=== PATIENT | male | born 1935 | race Caucasian/White ===

== ENCOUNTER 2017-05-06 11:42 | Observation (INO) | payer OTHER ==
--- NOTE | 2017-05-06 11:51 | CPEKG ---
Heart Rate: 45 RR Interval: 1333 QRSD Interval: 94 QT Interval: 492 QTC Interval: 426 QRS Reydon: 10 T Wave Reydon: 39 EKG Severity - ABNORMAL ECG - EKG Impression: ATRIAL FLUTTER, A-RATE 272 EKG Impression: VENTRICULAR PREMATURE COMPLEX Electronically Signed By: Óscar Rich 06-May-2017 12:57:23
[2017-05-06 12:02] LABS: PLATELET COUNT 127 10^3/uL (150-400)
--- NOTE | 2017-05-06 12:05 | EDPHY ---
H & P Time Seen by Provider: 05/06/17 11:42 HPI/ROS: CHIEF COMPLAINT: Chest pain HISTORY OF PRESENT ILLNESS: Patient at 7:00 p.m. last night developed chest pain which is dull and across his entire chest. Not associated with diaphoresis or radiation or nausea or vomiting. He says it is a little bit worse when he takes a deep breath and although it started gradually it has just become more more severe over the past 12 hr. Presents by EMS, received aspirin and fentanyl in the ambulance prior to arrival. REVIEW OF SYSTEMS: Eye: no change in vision ENT: no sore throat Cardiac: HPI no palpitations or syncope Pulmonary: no cough or SOB or hemoptysis Abdomen: no vomiting, diarrhea, abdominal pain Musculoskeletal: no back pain or leg swelling Skin: no rash Neuro: no headache Constitutional: no fever : no urinary symptoms A comprehensive 10 point review of systems is otherwise negative aside from elements mentioned in the history of present illness. PAST MEDICAL HISTORY: Hypertension hypercholesterolemia Social history: Nonsmoker General Appearance: Alert and conversant, cooperative. Eyes: No scleral icterus. ENT, Mouth: Normal mucous membranes. Respiratory: Normal respiratory effort, breath sounds equal, lungs are clear to auscultation. Cardiovascular: Regular rate and rhythm. Tachycardic no murmur Gastrointestinal: Abdomen is soft and non tender. Neurological: Alert and oriented x3. Normally conversant. Face symmetric, normal movement and sensation in all extremities. Skin: Warm and dry, no rashes. Musculoskeletal: No peripheral edema and no joint swelling. No calf tenderness. Psychiatric: Not agitated. Emergency Department course/MDM: EKG shows atrial flutter with a rate dipping down to 45. Plan for chemistries to include troponin and D-dimer. Rate now back up to the 130s but with his rate intermittently decreased to 45 I would be reluctant to start intravenous medications for rate control at this time. 1304: cardiology in patient room for assessment at this time. 1340: Plan at this time is to go to [facility] for cardioversion by Dr. James Cardiology. CTA negative for PE per Dr. Fernandez. Smoking Status: Never smoked Constitutional: Initial Vital Signs Temperature (C) 37.1 C 05/06/17 11:56 Heart Rate 135 H 05/06/17 11:56 Respiratory Rate 16 05/06/17 11:56 Blood Pressure 94/64 L 12/26/17 11:56 O2 Sat (%) 91 L 05/06/17 11:56 O2 Delivery Mode Nasal Cannula O2 (L/minute) 2 Allergies/Adverse Reactions: No Known Drug Allergies Allergy (Verified 05/06/17 12:03) Home Medications: Medication Instructions Recorded Aspirin [Aspirin 81mg (*)] 81 mg PO HS 05/06/17 Herbals/Supplements -Info Only 1 ea PO DAILY 05/06/17 Lisinopril [Zestril 5 mg (*)] 5 mg PO DAILY 05/06/17 Multivitamins [Multivitamin (*)] 1 each PO DAILY 05/06/17 Niacin [Niacin 500 mg (*)] 2,000 mg PO HS 05/06/17 Simvastatin [Zocor] 20 mg PO HS 05/06/17 Sitagliptin Phos/Metformin HCl 1 each PO BID 05/06/17 [Janumet 50-1,000 mg Tablet] Medical Decision Making - Diagnostics EKG Interpretation: 12-lead EKG interpreted by me; official reading is in trace master. My interpretation is atrial flutter rate 45. Imaging Results: Imaging Impressions Chest X-Ray 05/06/17 11:51 Impression: 1. Fibrotic streaks versus subsegmental atelectasis or dependent interstitial edema at the lung bases. 2. Calcified left hilar nodes. Differential Diagnosis: Differential diagnosis considered for chest pain including but not limited to myocardial ischemia, aortic dissection, pericarditis, pulmonary embolus, chest wall pain, pleural inflammation and pulmonary infectious causes. Consult/Admit Bed Type: [facility] 1242, [facility] cardiology 1248 - Data Points Laboratory Results: Laboratory Results 05/06/17 11:25 05/06/17 11:25 05/06/17 05/06/17 05/06/17 12:20 11:25 11:25 WBC RBC Hgb Hct MCV MCH MCHC RDW Plt Count MPV Neut % (Auto) Lymph % (Auto) Bradford % (Auto) Eos % (Auto) Baso % (Auto) Nucleat RBC Rel Count Absolute Neuts (auto) Absolute Lymphs (auto) Absolute Monos (auto) Absolute Eos (auto) Absolute Basos (auto) Absolute Nucleated RBC Immature Gran % Immature Gran # PT 15.0 SEC SEC (12.0-15.0) INR 1.16 (0.83-1.16) APTT 23.5 SEC SEC (23.0-38.0) D-Dimer 1.42 ug/mLFEU H ug/mLFEU (0.00-0.50) Sodium 134 mEq/L mEq/L (134-144) Potassium 4.7 mEq/L mEq/L (3.5-5.2) Chloride 101 mEq/L mEq/L (97-110) Carbon Dioxide 15 mEq/l L mEq/l (22-31) Anion Gap 18 mEq/L H mEq/L (8-16) BUN 22 mg/dL mg/dL (7-23) Creatinine 0.9 mg/dL mg/dL (0.7-1.3) Estimated GFR > 60 Glucose 185 mg/dL H mg/dL (70-100) Calcium 10.3 mg/dL mg/dL (8.5-10.4) Magnesium 1.5 mg/dL L mg/dL (1.6-2.3) Troponin I 0.288 ng/mL H ng/mL (0.000-0.034) 05/06/17 11:25 WBC 14.48 10^3/uL H 10^3/uL (3.80-9.50) RBC 3.52 10^6/uL L 10^6/uL (4.40-6.38) Hgb 12.1 g/dL L g/dL (13.7-17.5) Hct 36.0 % L % (40.0-51.0) MCV 102.3 fL H fL (81.5-99.8) MCH 34.4 pg H pg (27.9-34.1) MCHC 33.6 g/dL g/dL (32.4-36.7) RDW 13.0 % % (11.5-15.2) Plt Count 127 10^3/uL L 10^3/uL (150-400) MPV 8.9 fL fL (8.7-11.7) Neut % (Auto) 85.8 % H % (39.3-74.2) Lymph % (Auto) 5.6 % L % (15.0-45.0) Bradford % (Auto) 7.8 % % (4.5-13.0) Eos % (Auto) 0.1 % L % (0.6-7.6) Baso % (Auto) 0.3 % % (0.3-1.7) Nucleat RBC Rel Count 0.0 % % (0.0-0.2) Absolute Neuts (auto) 12.42 10^3/uL H 10^3/uL (1.70-6.50) Absolute Lymphs (auto) 0.81 10^3/uL L 10^3/uL (1.00-3.00) Absolute Monos (auto) 1.13 10^3/uL H 10^3/uL (0.30-0.80) Absolute Eos (auto) 0.02 10^3/uL L 10^3/uL (0.03-0.40) Absolute Basos (auto) 0.04 10^3/uL 10^3/uL (0.02-0.10) Absolute Nucleated RBC 0.00 10^3/uL 10^3/uL (0-0.01) Immature Gran % 0.4 % % (0.0-1.1) Immature Gran # 0.06 10^3/uL 10^3/uL (0.00-0.10) PT INR APTT D-Dimer Sodium Potassium Chloride Carbon Dioxide Anion Gap BUN Creatinine Estimated GFR Glucose Calcium Magnesium Troponin I Medications Given: Discontinued Medications Enoxaparin Sodium (Lovenox) 70 mg SC ONCE ONE Stop: 05/06/17 14:01 Last Admin: 05/06/17 14:02 Dose: 70 mg Ketorolac Tromethamine (Toradol) 30 mg IVP ONCE ONE Stop: 05/06/17 13:25 Last Admin: 05/06/17 13:30 Dose: 30 mg Departure - Departure Disposition: [facility] Inpatient Acute Clinical Impression: Atrial flutter Qualifiers: Atrial flutter type: unspecified Qualified Code(s): I48.92 - Unspecified atrial flutter Condition: Good
[2017-05-06] MEDS ORDERED: IOPAMIDOL (ISOVUE 370) 100 ML BTL IV ONE (12:49)
[2017-05-06] MEDS ORDERED: KETOROLAC 30 MG/1 ML SDV IVP ONE (13:24)
[2017-05-06] MEDS ORDERED: ATROPINE SULFATE 1 MG/10 ML SYR IVP ONE (13:27)
[2017-05-06] MEDS ORDERED: fentaNYL 100 MCG/2 ML INJ IVP ONE (13:27)
[2017-05-06] MEDS ORDERED: KETOROLAC 30 MG/1 ML SDV ONE (13:27)
[2017-05-06] MEDS ORDERED: MIDAZOLAM 2 MG/2 ML VIAL IVP ONE (13:27)
[2017-05-06] MEDS ORDERED: NS 500 ML IV ONE (13:27)
[2017-05-06] MEDS ORDERED: BENZOCAINE UNIT DOSE SPRAY HURRICAINE MM ONE (13:27)
--- NOTE | 2017-05-06 13:34 | PDCARCONS ---
Cardiology Consult Reason for Consult: Chest pain, atrial flutter. Chief Complaint: Chest pain. Requesting Physician: Dr. Óscar Rich. History of Present Illness: This is an 82-year-old male who has known coronary artery disease. He states that he had previous stenting of an unknown vessel back in 1993. Since then he really has not had much in the way of any cardiovascular follow-up. Ongoing risk factors include hypertension, type 2 diabetes and hyperlipidemia which are aggressively managed. He has no history of arrhythmia. He states that he was doing well until about 7 o'clock last night. At that time he began to develop precordial chest discomfort. This is described as a sharp, retrosternal pain. The pain is made much worse with deep inspiration. He also notes the pain is worse when he lies flat. He has had no fever, chills , sweats or productive cough. Over the last 12-18 hours the pain has gradually worsened. At about 9 o'clock this morning his younger brother called him. After he told younger brother about the pain he was asked to call 911 and subsequently brought to the emergency department here. On arrival here he was hemodynamically stable with no oxygen requirement. His initial electrocardiogram demonstrated atrial flutter with a slow ventricular response. The QRS complexes we did not demonstrate any significant ST or T changes. His initial troponin was 0.28 and he had an elevated D-dimer. A CT scan of the chest did not demonstrate any evidence of pulmonary embolism. In talking to him he states his pain is 6/10 in intensity. While I was examining him he complained of severe pain with inspiration at the level of about half of breath. He has not had any hemoptysis. He notes no recent falls or chest wall injury. History Information - Allergies/Home Medication List Allergies/Adverse Reactions: No Known Drug Allergies Allergy (Verified 05/06/17 12:03) Home Medications: Aspirin [Aspirin 81mg (*)] 81 mg PO HS 05/06/17 [Last Taken 05/05/17] Herbals/Supplements -Info Only 1 ea PO DAILY 05/06/17 [Last Taken Unknown] Lisinopril [Zestril 5 mg (*)] 5 mg PO DAILY 05/06/17 [Last Taken 05/05/17] Multivitamins [Multivitamin (*)] 1 each PO DAILY 05/06/17 [Last Taken 05/05/17] Niacin [Niacin 500 mg (*)] 2,000 mg PO HS 05/06/17 [Last Taken 05/05/17] Simvastatin [Zocor] 20 mg PO HS 05/06/17 [Last Taken 05/05/17] Sitagliptin Phos/Metformin HCl [Janumet 50-1,000 mg Tablet] 1 each PO BID [Last Taken 05/05/17 21:00] I have personally reviewed and updated: family history, medical history, social history, surgical history Past Medical History: Coronary artery disease, osteoarthritis, type 2 diabetes mellitus, hypertension , hyperlipidemia, inguinal hernia, poor dentition. - Surgical History Additional surgical history: Inguinal hernia repair, prior PCI/stenting. - Family History Additional family history: At this point is noncontributory. - Social History Smoking Status: Never smoked Alcohol Use: None Drug Use: None Additional social history: He lives independently in [place]. He used to work for [employer]. He does not exercise as he is limited by osteoarthritis. Cardiac History - Cardiac History Past Cardiac History: CAD, PCI Physical Exam Physical Exam: Temp Pulse Resp BP Pulse Ox 37.1 C 134 H 16 107/62 97 05/06/17 11:56 05/06/17 12:53 05/06/17 12:53 05/06/17 12:53 05/06/17 12:53 O2 (L/minute) 2 Constitutional: no apparent distress, appears nourished Ears, Nose, Mouth, Throat: moist mucous membranes Cardiovascular: no murmur, rub, or gallop, tachycardia Peripheral Pulses: 2+: carotid (R), carotid (L) Respiratory: no respiratory distress, no rales or rhonchi Gastrointestinal: normoactive bowel sounds, soft, non-tender abdomen, No no palpable masses Genitourinary: no bladder fullness Skin: warm, normal color Neurologic: AAOx3 Psychiatric: interacting appropriately Lab and Imaging 05/06/17 11:25 05/06/17 11:25 WBC 14.48 10^3/uL (3.80-9.50) H 05/06/17 11:25 RBC 3.52 10^6/uL (4.40-6.38) L 05/06/17 11:25 Hgb 12.1 g/dL (13.7-17.5) L 05/06/17 11:25 Hct 36.0 % (40.0-51.0) L 05/06/17 11:25 MCV 102.3 fL (81.5-99.8) H 05/06/17 11:25 MCH 34.4 pg (27.9-34.1) H 05/06/17 11:25 MCHC 33.6 g/dL (32.4-36.7) 05/06/17 11:25 RDW 13.0 % (11.5-15.2) 05/06/17 11:25 Plt Count 127 10^3/uL (150-400) L 05/06/17 11:25 MPV 8.9 fL (8.7-11.7) 05/06/17 11:25 Neut % (Auto) 85.8 % (39.3-74.2) H 05/06/17 11:25 Lymph % (Auto) 5.6 % (15.0-45.0) L 05/06/17 11:25 [place]ack[place]ord % (Auto) 7.8 % (4.5-13.0) 05/06/17 11:25 Eos % (Auto) 0.1 % (0.6-7.6) L 05/06/17 11:25 Baso % (Auto) 0.3 % (0.3-1.7) 05/06/17 11:25 Nucleat RBC Rel Count 0.0 % (0.0-0.2) 05/06/17 11:25 Absolute Neuts (auto) 12.42 10^3/uL (1.70-6.50) H 05/06/17 11:25 Absolute Lymphs (auto) 0.81 10^3/uL (1.00-3.00) L 05/06/17 11:25 Absolute Monos (auto) 1.13 10^3/uL (0.30-0.80) H 05/06/17 11:25 Absolute Eos (auto) 0.02 10^3/uL (0.03-0.40) L 05/06/17 11:25 Absolute Basos (auto) 0.04 10^3/uL (0.02-0.10) 05/06/17 11:25 Absolute Nucleated RBC 0.00 10^3/uL (0-0.01) 05/06/17 11:25 Immature Gran % 0.4 % (0.0-1.1) 05/06/17 11:25 Immature Gran # 0.06 10^3/uL (0.00-0.10) 05/06/17 11:25 D-Dimer 1.42 ug/mLFEU (0.00-0.50) H 05/06/17 12:20 Sodium 134 mEq/L (134-144) 05/06/17 11:25 Potassium 4.7 mEq/L (3.5-5.2) 05/06/17 11:25 Chloride 101 mEq/L (97-110) 05/06/17 11:25 Carbon Dioxide 15 mEq/l (22-31) L 05/06/17 11:25 Anion Gap 18 mEq/L (8-16) H 05/06/17 11:25 BUN 22 mg/dL (7-23) 05/06/17 11:25 Creatinine 0.9 mg/dL (0.7-1.3) 05/06/17 11:25 Estimated GFR > 60 05/06/17 11:25 Glucose 185 mg/dL (70-100) H 05/06/17 11:25 Calcium 10.3 mg/dL (8.5-10.4) 05/06/17 11:25 Troponin I 0.288 ng/mL (0.000-0.034) H 05/06/17 11:25 Visualized and Interpreted Chest x-ray results: Yes Chest X-ray Interpretation: no infiltrate Visualized and Interpreted imaging results: Yes Interpretation: There is a full and separately dictated report for the chest CTA which is located in the medical record. Visualized and Interpreted EKG results: Yes EKG additional interpertation: Atrial flutter. Resting heart rate of 45 beats per minute. Normal appearing QRS complexes. Telemetry: On telemetry he is in atrial flutter with variable ventricular response. At the time of my exam his resting heart rate was 130 beats per minute. A/P Assessment: He is an 82-year-old male with known coronary artery disease, type 2 diabetes mellitus, hypertension and hyperlipidemia as described previously. He presents now with 18 hours of continuous respiratory phasic and positional chest discomfort. His cardiovascular history is really not consistent with angina and is most consistent with either pericarditis or potentially pleuritis. His electrocardiogram does not demonstrate any dynamic ST or T changes. His troponin is elevated consistent with probable pericardial inflammation. Additionally, he is in atrial flutter with a rapid ventricular response and at times has manifested significant bradycardia. Fortunately, he gives no history of syncope or presyncope. At this point I do not think that he requires cardiac catheterization. I would like to proceed with a AVINASH and cardioversion. After sinus rhythm has been restored we can do a full surface echocardiogram and trend his cardiac enzymes. He has been given a dose of Lovenox for thromboprophylaxis and a dose of Toradol for pain control. Further recommendations will be made depending on his clinical course during this hospitalization.
[2017-05-06] MEDS ORDERED: ATROPINE SULFATE 1 MG/10 ML SYR ONE (13:46)
[2017-05-06 13:49] LABS: INR 1.16 (0.83-1.16)
[2017-05-06] MEDS ORDERED: ENOXAPARIN 80 MG/0.8 ML SYR SC ONE (14:00)
--- NOTE | 2017-05-06 14:48 | PDHPUP ---
History & Physical Update H&P update statement: This history and physical update is based on an assessment of the patient which was completed after admission or registration (within 24 hours), but prior to the surgery/procedure. H&P update: H&P reviewed & patient examined, no change in patient's condition since H&P completed
[2017-05-06] MEDS ORDERED: COLCHICINE 0.6 MG CAP/TAB PO SCH (15:00)
[2017-05-06] MEDS ORDERED: MAGNESIUM SULF 1 GM/DEXTROSE 100 ML BAG IV ONE (15:01)
--- NOTE | 2017-05-06 15:03 | HOSPPROG ---
Hospitalist Progress Note Assessment/Plan: CC: Chest discomfort and shortness of breath HISTORY: This gentleman with history of coronary disease in the remote past comes in after onset of chest discomfort last evening and shortness of breath. Some around 7 or 730 last night he had onset of a somewhat sharp and pleuritic discomfort in the mid central chest anteriorly that has gradually worsened since that time but been constantly present. There is no cough or fever associated with this. There is not a typical angina such as a squeezing pressure or other similar type symptom. He does have a history of coronary disease with stents from 1993 but cannot recall the really what his symptom felt like at that time. He gives a history of having had some intermittent exertion related angina since 1993, but says his knees are so bad for the last 15 years that he has not been able to do enough vigorous activity to bring on any angina. Either way said no angina or other cardiac symptoms for at least 15 years. The patient has not had any palpitations, fever, cough, and has had no pain or swelling in his legs. There is no recent travel, surgery, hospitalization, or other immobilization. He has no history or symptoms to suggest any type of malignant or inflammatory illness. He has no prior history of thromboembolic disease. There is no history of any pulmonary disease and he has never smoked. ROS: A comprehensive 10 system review revealed no other significant findings PAST MEDICAL HISTORY: -Coronary artery disease manifest with angina in 1990, treated between then in 1993 with a few angioplasties and finally a stent in 1993. Initially some angina with exertion after 1993 but at least 15 years without any angina since then. No history of heart failure or arrhythmia -arthritis in both knees -hypothyroidism FAMILY MEDICAL HISTORY: Hyper and hypothyroidism Lymphoma Breast cancer SOCIAL HISTORY: Retired formally worked at [employer]. Born and raised in [place] Has never used any tobacco or alcohol no street drugs, no stimulants MEDICATIONS: The patients list has been reconciled by our clinical pharmacist in the EMR. I have reviewed the list and ordered appropriate medicines. PHYSICAL EXAMINATION: Vital Signs: Pulse right now 138 and regular, blood pressures have been good and respirations are normal rate not labored, no fever De Icer Kit Assembler: Currently monitor showing atrial f flutter at 130 beats per min. Previous monitoring from the ER as well as his 12 lead EKG show atrial fibrillation alternating between tachycardia and marked bradycardia, thus longest pause I saw between QRSs was just short of 3 sec and has had measured heart rates in the 30s Examination: General: alert, oriented, good mentation, relaxed Skin: warm, dry, good color, no rash HEENT: normal Neck: Jugular veins are notably distended, no mass Resps: Very mildly labored Lungs: Some rales, no wheeze Heart: regular, quite tachycardic, no murmur Abdomen: soft, nondistended, nontender, +BS, no mass Upper Extremities: normal Lower Extremities: 2+ edema in the pretibial areas of both legs, warm and good color otherwise No Bleeding or bruising Neurologic: normal speech/language, normal environmental services technician, no focal weakness IV site: looks normal LABORATORY DATA: 1st troponin 0.288 White blood cell count 14, platelets mildly low Glucose moderately elevated CO2 low at 15, electrolytes good except for borderline low magnesium RADIOLOGY STUDIES: I reviewed CT scan images from the ER today of chest with contrast. My interpretation is no evidence of congestive heart failure or pleural effusion, the abnormal airspace density at the base of both lungs posteriorly appears to me to be either some dependent airspace edema or dependent atelectasis, but I do not see anything that looks suggestive of pneumonitis or pneumonia which was the diagnosis from radiologist. The patient does not have any masses, there is some calcification of coronaries. 12 LEAD EKG: Atrial flutter with severely prolonged RR interval 1 heart beat nearly 3 sec and notable bradycardia, nothing overtly ischemic new ASSESSMENT: -atrial fibrillation with rapid ventricular response interspersed with some severe bradycardia in the absence of heart rate lowering medication; 1st ever known episode of AFib -chest pain and dyspnea may be a direct symptom of AFib, or could be potentially reflective of some angina and ischemia due to the rapid AFib along with possibly some coronary stenoses in this patient with a remote history of coronary disease; 1st troponin very mildly elevated could just be demand ischemia from the rapid AFib or again potentially some tachycardia related ischemia if there is a coronary stenosis -mild congestive heart failure with slight dependent pulmonary edema and slight leg edema bilaterally likely due to his AFib -mild anemia and thrombocytopenia of uncertain cause or significance -diabetes mellitus type 2 on oral medication, elevated glucose at this time -mild hypomagnesemia will want to replace that given his arrhythmia This patient is having significant symptoms and significant tachycardia with AFib. We are not going to be able to safely rate control him with medications due to his marked bradycardia. It will be a ideal if we can cardiovert him, however the duration of his AFib at this time is entirely unknown as he has no palpitations. Dr. James has reviewed his case and plans to do a AVINASH and if no thrombi present proceed with cardioversion. It were unable to toe successfully and safely cardiovert him, we may need to consider placing pacemaker and then adding rate control medicines. He will need anticoagulation for stroke prevention. Will need to get repeat troponins and watch for any further signs of ischemia or heart failure. Myocardial perfusion imaging should be performed or if he does develop any more significant signs of ischemia or injury may need to consider angiography. PLANS: -PE an attempt cardioversion if no thrombus -review status after that and determine further plans for managing AFib and rate -anticoagulation full-dose -monitor and treat his diabetes as indicated I have reviewed the patient's case in detail with . I have reviewed the patient's past medical records as part of this assessment, including Objective: Vital Signs Temp Pulse Resp BP Pulse Ox 37.0 C 135 H 16 105/67 98 05/06/17 13:40 05/06/17 13:40 05/06/17 13:40 05/06/17 13:40 05/06/17 13:40 PT 15.0 SEC (12.0-15.0) 05/06/17 12:20 INR 1.16 (0.83-1.16) 05/06/17 12:20 ICD10 Worksheet Patient Problems: Problems Problem Status Onset Atrial flutter Acute
[2017-05-06] MEDS ORDERED: PROPOFOL 200 MG/20 ML VIAL ONE (15:15)
--- NOTE | 2017-05-06 15:17 | PDANEPAE ---
ANE History of Present Illness 82 yo for annalisa/cv aflutter htn dm ANE Past Medical History - Cardiovascular History Hx Hypertension: Yes Hx Arrhythmias: Yes - Pulmonary History Hx Oxygen in Use at Home: No Hx Sleep Apnea: No - Endocrine History Hx Diabetes: Yes ANE Review of Systems Review of Systems: ANE Patient History - Allergies Allergies/Adverse Reactions: No Known Drug Allergies Allergy (Verified 05/06/17 12:03) - Home Medications Home Medications: Aspirin [Aspirin 81mg (*)] 81 mg PO HS 05/06/17 [Last Taken 05/05/17] Herbals/Supplements -Info Only 1 ea PO DAILY 05/06/17 [Last Taken Unknown] Lisinopril [Zestril 5 mg (*)] 5 mg PO DAILY 05/06/17 [Last Taken 05/05/17] Multivitamins [Multivitamin (*)] 1 each PO DAILY 05/06/17 [Last Taken 05/05/17] Niacin [Niacin 500 mg (*)] 2,000 mg PO HS 05/06/17 [Last Taken 05/05/17] Simvastatin [Zocor] 20 mg PO HS 05/06/17 [Last Taken 05/05/17] Sitagliptin Phos/Metformin HCl [Janumet 50-1,000 mg Tablet] 1 each PO BID [Last Taken 05/05/17 21:00] - NPO status NPO Status: no food or drink >8 hours - Smoking Hx Smoking Status: Never smoked - Alcohol Use Alcohol Use: None ANE Labs/Vital Signs - Labs Result Diagrams: 05/06/17 11:25 05/06/17 11:25 - Vital Signs Blood Pressure: 105/67 Heart Rate: 135 Respiratory Rate: 16 O2 Sat (%): 98 Height: 5 ft 5 in Weight: 77.111 kg ANE Physical Exam - Airway Neck exam: FROM Mallampati Score: Class 2 Mouth exam: poor dentition - Pulmonary Pulmonary: no respiratory distress - Cardiovascular Cardiovascular: regular rate and rhythym - ASA Status ASA Status: II ANE Anesthesia Plan Anesthesia Plan: GA with mask
[2017-05-06] MEDS ORDERED: MAGNESIUM SULF 1 GM/DEXTROSE 100 ML IV ONE (15:30)
--- NOTE | 2017-05-06 15:31 | PDTEE1 ---
AVINASH Cardioversion Procedure Procedure: electrical cardioversion Indications: atrial fibrillation Consent: signed and in chart Anticoagulation: lovenox Procedural Details: Pads were placed in anterior-posterior position. AVINASH probe was advanced and standard images obtained. There is no evidence of left atrial or left atrial appendage thrombus. Synchronized cardioversion attempt #1: other (70) Results: normal sinus rhythm Conclusions: successful AVINASH cardioversion Patient Problems: Problems Problem Status Onset Atrial flutter Acute
--- NOTE | 2017-05-06 15:38 | CPEKG ---
Heart Rate: 114 RR Interval: 526 P-R Interval: 159 QRSD Interval: 108 QT Interval: 308 QTC Interval: 425 P Princeton: 0 QRS [place]: -27 T Wave [place]: 73 EKG Severity - ABNORMAL ECG - EKG Impression: SINUS TACHYCARDIA,FIRST DEGREE A-V BLOCK EKG Impression: VENTRICULAR PREMATURE COMPLEXES EKG Impression: PAC'S EKG Impression: LOW VOLTAGE IN FRONTAL LEADS Electronically Signed By: Bacilio Cordero 07-May-2017 07:50:34
[2017-05-06] MEDS ORDERED: KETOROLAC 15 MG/1 ML SDV IVP PRN (15:41)
--- NOTE | 2017-05-06 15:46 | POSTANESTH ---
Post Anesthetic Evaluation Cardiovascular Status: Normal, Stable Respiratory Status: Normal, Stable Level of Consciousness/Mental Status: Can Participate in Eval Pain Control: Adequate, Prn Tx Ordered Nausea/Vomiting Control: Adequate, Prn Tx Ordered Complications Possibly Related to Anesthesia: None Noted
[2017-05-06] MEDS ORDERED: ONDANSETRON 4 MG/2 ML VIAL IVP PRN (17:02)
[2017-05-06] MEDS ORDERED: ACETAMINOPHEN 325 MG TAB PO PRN (17:02)
[2017-05-06] MEDS ORDERED: ONDANSETRON DISINTEGRATING 4 MG TAB PO PRN (17:02)
[2017-05-06] MEDS ORDERED: metFORMIN HCL 500 MG TAB PO SCH (18:00)
[2017-05-06] MEDS: AMIODARONE HCL 200 MG TAB PO SCH (19:43)
[2017-05-06] MEDS ORDERED: ASPIRIN 81 MG CHEWABLE TAB PO SCH (21:00)
[2017-05-06] MEDS ORDERED: ATORVASTATIN CALCIUM 10 MG TAB PO SCH (21:00)
[2017-05-06] MEDS: ENOXAPARIN 80 MG/0.8 ML SYR SC SCH (22:12)
[2017-05-07 07:56] VITALS: O2SAT 93
[2017-05-07] MEDS ORDERED: FUROSEMIDE 20 MG/2 ML VIAL IVP ONE (08:37)
[2017-05-07] MEDS ORDERED: ATROPINE SULFATE 1 MG/10 ML SYR IVP ONE (09:06)
[2017-05-07] MEDS ORDERED: NS 1,000 ML IV ONE (09:06)
--- NOTE | 2017-05-07 09:10 | CPEKG ---
Heart Rate: 106 RR Interval: 566 P-R Interval: 212 QRSD Interval: 92 QT Interval: 336 QTC Interval: 447 P [place]: 40 QRS [place]: -35 T Wave [place]: 42 EKG Severity - BORDERLINE ECG - EKG Impression: SINUS TACHYCARDIA EKG Impression: LEFT AXIS DEVIATION EKG Impression: LOW VOLTAGE IN FRONTAL LEADS Electronically Signed By: Bacilio Cordero 07-May-2017 09:31:57
[2017-05-07] MEDS: AMIODARONE HCL 200 MG TAB PO SCH (10:17)
[2017-05-07] MEDS: ENOXAPARIN 80 MG/0.8 ML SYR SC SCH (10:18)
[2017-05-07] MEDS ORDERED: REGADENOSON 0.4 MG/5 ML SYR IVP ONE (13:15)
--- NOTE | 2017-05-07 13:21 | ASMTCASEMG ---
Living Arrangements What is your living Answers: Alone arrangement? Who do you live with? Type Of Residence What kind of residence do Answers: House you live in? Discharge Plan Comments Coordination Status Comments Notes: CM spoke w/ PEG Ferrari regarding d/c POC. Pt is a 82 y/o female admitted for atrial flutter. Pt is having a stress test today. Needs are unclear at this time. No therapies ordered. CM to follow. Plan: TBD Date Signed: 05/07/2017 01:21 PM Electronically Signed By:SHALINI Pearson
[2017-05-07] MEDS ORDERED: ENOXAPARIN 30 MG/0.3 ML SYR SC ONE (13:25)
--- NOTE | 2017-05-07 13:47 | SOAPPROG ---
[facility]LL[facility] Progress Note Assessment/Plan: Assessment: 82-year-old male who presents with respiratory phasic/pleuritic chest pain associated with a slight troponin elevation. This was noted in the setting of newly diagnosed atrial flutter. He has known CAD with a distant history of previous PCI and stenting. He is status post AVINASH and cardioversion and has maintained sinus rhythm overnight. He is currently on amiodarone. Lovenox was started for thromboprophylaxis. Overnight his troponins have peaked. His ECG remains nonischemic and he is pain-free at the present time. Plan: 1. I would like him to have a Lexiscan myocardial perfusion imaging study today. 2. He was given a low-dose of Lasix 20 mg IV. 3. Depending on the results of his Lexiscan study, we will transition him to oral anticoagulants. 4. He will continue his other medications including the recently added amiodarone. 05/07/17 13:44 Subjective: He has done well overnight. Today he is chest pain-free. He remains in sinus rhythm. Objective: Vital Signs Temp Pulse Resp BP Pulse Ox 36.9 C 95 16 117/79 93 05/07/17 11:32 05/07/17 11:32 05/07/17 11:32 05/07/17 11:32 05/07/17 11:32 Laboratory Results 05/07/17 03:05 05/07/17 03:05 05/06/17 05/07/17 05/08/17 05:59 05:59 05:59 Intake Total 700 300 Output Total 725 700 Balance -25 -400 PT 15.0 SEC (12.0-15.0) 05/06/17 12:20 INR 1.16 (0.83-1.16) 05/06/17 12:20 Physical Exam - Physical Exam General Appearance: WD/WN, no apparent distress Neck: non-tender, full range of motion Respiratory: rales (At the bases) Cardiac/Chest: regular rate, rhythm, edema (1 quarter-inch pitting by pedal edema extending to the lower 3rd of the candelario), No gallop, No JVD Peripheral Pulses: 2+: carotid (R), carotid (L) Abdomen: non-tender, soft Male Genitalia: deferred Rectal: deferred Neuro/Psych: alert, oriented x 3 ICD10 Worksheet Patient Problems: Problems Problem Status Onset Atrial flutter Acute
--- NOTE | 2017-05-07 14:24 | PDCARST ---
CAR Stress Test Results Type of Stress Test: Lexiscan stress test Indication: cp/CAD Description of Procedure: After informed consent was obtained, pt was established to ECG, blood pressure, HR and oximetry monitoring. STRESS EKG AND HEMODYNAMIC DATA. Resting heart rate: 106 BPM. Resting ECG: SR. Resting blood pressure: 118/64 mmHg. O2 saturation at rest: 92%. Peak heart rate: 107 BPM. Peak blood pressure: 130/60 mmHg. Arrhythmias: occasional PVCs during stress and recovery. Symptoms: The patient experienced no typical symptoms of angina during stress or recovery. Stress/Infusion ECG: No change in rhythm with no significant ST/T wave changes. Stress/infusion O2 saturation : 93% Impression: Uneventful Lexiscan infusion. Conclusion: Await nuclear images.
[2017-05-07 15:06] VITALS: BP 118/78; PULSE 108; RESP 20; TEMP 97.9
--- NOTE | 2017-05-07 16:06 | PDGENHP ---
History and Physical History and Physical: CC: Chest discomfort and shortness of breath HISTORY: This gentleman with history of coronary disease in the remote past comes in after onset of chest discomfort last evening and shortness of breath. Some around 7 or 730 last night he had onset of a somewhat sharp and pleuritic discomfort in the mid central chest anteriorly that has gradually worsened since that time but been constantly present. There is no cough or fever associated with this. There is not a typical angina such as a squeezing pressure or other similar type symptom. He does have a history of coronary disease with stents from 1993 but cannot recall the really what his symptom felt like at that time. He gives a history of having had some intermittent exertion related angina since 1993, but says his knees are so bad for the last 15 years that he has not been able to do enough vigorous activity to bring on any angina. Either way said no angina or other cardiac symptoms for at least 15 years. The patient has not had any palpitations, fever, cough, and has had no pain or swelling in his legs. There is no recent travel, surgery, hospitalization, or other immobilization. He has no history or symptoms to suggest any type of malignant or inflammatory illness. He has no prior history of thromboembolic disease. There is no history of any pulmonary disease and he has never smoked. ROS: A comprehensive 10 system review revealed no other significant findings PAST MEDICAL HISTORY: -Coronary artery disease manifest with angina in 1990, treated between then in 1993 with a few angioplasties and finally a stent in 1993. Initially some angina with exertion after 1993 but at least 15 years without any angina since then. No history of heart failure or arrhythmia -arthritis in both knees -hypothyroidism FAMILY MEDICAL HISTORY: Hyper and hypothyroidism Lymphoma Breast cancer SOCIAL HISTORY: Retired formally worked at [employer]. Born and raised in [place] Has never used any tobacco or alcohol no street drugs, no stimulants MEDICATIONS: The patients list has been reconciled by our clinical pharmacist in the EMR. I have reviewed the list and ordered appropriate medicines. 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 Previous monitoring from the ER as well as his 12 lead EKG show atrial fibrillation alternating between tachycardia and marked bradycardia, thus longest pause I saw between QRSs was just short of 3 sec and has had measured heart rates in the 30s Examination: General: alert, oriented, good mentation, relaxed Skin: warm, dry, good color, no rash HEENT: normal Neck: Jugular veins are notably distended, no mass Resps: Very mildly labored Lungs: Some rales, no wheeze Heart: regular, quite tachycardic, no murmur Abdomen: soft, nondistended, nontender, +BS, no mass Upper Extremities: normal Lower Extremities: 2+ edema in the pretibial areas of both legs, warm and good color otherwise No Bleeding or bruising Neurologic: normal speech/language, normal filling separator, no focal weakness IV site: looks normal LABORATORY DATA: 1st troponin 0.288 White blood cell count 14, platelets mildly low Glucose moderately elevated CO2 low at 15, electrolytes good except for borderline low magnesium RADIOLOGY STUDIES: I reviewed CT scan images from the ER today of chest with contrast. My interpretation is no evidence of congestive heart failure or pleural effusion, the abnormal airspace density at the base of both lungs posteriorly appears to me to be either some dependent airspace edema or dependent atelectasis, but I do not see anything that looks suggestive of pneumonitis or pneumonia which was the diagnosis from radiologist. The patient does not have any masses, there is some calcification of coronaries. 12 LEAD EKG: Atrial flutter with severely prolonged RR interval 1 heart beat nearly 3 sec and notable bradycardia, nothing overtly ischemic new ASSESSMENT: -atrial fibrillation with rapid ventricular response interspersed with some severe bradycardia in the absence of heart rate lowering medication; 1st ever known episode of AFib -chest pain and dyspnea may be a direct symptom of AFib, or could be potentially reflective of some angina and ischemia due to the rapid AFib along with possibly some coronary stenoses in this patient with a remote history of coronary disease; 1st troponin very mildly elevated could just be demand ischemia from the rapid AFib or again potentially some tachycardia related ischemia if there is a coronary stenosis -mild congestive heart failure with slight dependent pulmonary edema and slight leg edema bilaterally likely due to his AFib -mild anemia and thrombocytopenia of uncertain cause or significance -diabetes mellitus type 2 on oral medication, elevated glucose at this time -mild hypomagnesemia will want to replace that given his arrhythmia This patient is having significant symptoms and significant tachycardia with AFib. We are not going to be able to safely rate control him with medications due to his marked bradycardia. It will be a ideal if we can cardiovert him, however the duration of his AFib at this time is entirely unknown as he has no palpitations. Dr. James has reviewed his case and plans to do a AVINASH and if no thrombi present proceed with cardioversion. It were unable to toe successfully and safely cardiovert him, we may need to consider placing pacemaker and then adding rate control medicines. He will need anticoagulation for stroke prevention. Will need to get repeat troponins and watch for any further signs of ischemia or heart failure. Myocardial perfusion imaging should be performed or if he does develop any more significant signs of ischemia or injury may need to consider angiography. PLANS: -TTE followed by an attempt cardioversion if no thrombus -review status after that and determine further plans for managing AFib and rate -anticoagulation full-dose -monitor and treat his diabetes as indicated I have reviewed the patient's case in detail with Dr. Lynnette James I
--- NOTE | 2017-05-07 16:08 | HOSPPROG ---
Hospitalist Progress Note Assessment/Plan: -atrial fibrillation with rapid ventricular response interspersed with some severe bradycardia in the absence of heart rate lowering medication; 1st ever known episode of AFib -chest pain and dyspnea may be a direct symptom of AFib, or could be potentially reflective of some angina and ischemia due to the rapid AFib along with possibly some coronary stenoses in this patient with a remote history of coronary disease; 1st troponin very mildly elevated could just be demand ischemia from the rapid AFib or again potentially some tachycardia related ischemia if there is a coronary stenosis -mild congestive heart failure with slight dependent pulmonary edema and slight leg edema bilaterally likely due to his AFib -mild anemia and thrombocytopenia of uncertain cause or significance -diabetes mellitus type 2 on oral medication, elevated glucose at this time -mild hypomagnesemia will want to replace that given his arrhythmia Objective: Vital Signs Temp Pulse Resp BP Pulse Ox 36.6 C 108 H 20 118/78 93 05/07/17 15:05 05/07/17 15:05 05/07/17 15:05 05/07/17 15:05 05/07/17 15:05 Laboratory Results 05/07/17 03:05 05/07/17 03:05 05/06/17 05/07/17 05/08/17 06:59 06:59 06:59 Intake Total 700 300 Output Total 725 700 Balance -25 -400 PT 15.0 SEC (12.0-15.0) 05/06/17 12:20 INR 1.16 (0.83-1.16) 05/06/17 12:20 ICD10 Worksheet Patient Problems: Problems Problem Status Onset Atrial flutter Acute
--- NOTE | 2017-05-07 17:33 | PDDCSUM ---
Discharge Summary Discharge Summary: DISCHARGE DIAGNOSES: -atrial fibrillation with rapid ventricular response interspersed with some severe bradycardia in the absence of heart rate lowering medication; 1st ever known episode of AFib -chest discomfort and mild troponin elevation or felt to be due to demand ischemia without an acute coronary syndrome -history of old myocardial infarction 1993, no evidence of reversible perfusion abnormality on myocardial perfusion imaging with stress at this time -mild congestive heart failure with slight dependent pulmonary edema and slight leg edema bilaterally likely due to his AFib -mild anemia and thrombocytopenia of uncertain cause or significance -diabetes mellitus type 2 on oral medication, elevated glucose at this time CONSULTANTS: Dr. Rj James PROCEDURES: AVINASH with no thrombus Electrical cardioversion from AFib to sinus rhythm Lexiscan stress with myocardial perfusion imaging: Evidence of old infarction which was known from 1993, no evidence of reversible perfusion defect Decreased l ejection fraction at 38% HOSPITAL COURSE SUMMARY: This patient came into the hospital with chest discomfort or shortness of breath. Is found have new onset of 1st diagnosis atrial fibrillation rapid ventricular rate in the 130s but also had periods of heart rate in the 30s despite no heart rate control medication. His blood pressure was stable, he had very mild congestive heart failure, and had very mild elevations of cardiac troponin. EKGs did not show signs of ischemia. He has a history of myocardial infarction and stents in 1993. No cardiac history since then. The patient was taken to the procedure center where he had AVINASH showing no evidence of cardiac thrombus. He then underwent successful and uncomplicated electrical cardioversion and has remained in a sinus rhythm since then. His heart failure has resolved after a dose of Lasix, his chest pain and shortness of breath have entirely resolved and he is up walking in the hallway without any difficulty. Blood pressures have remained good. There has been no fever. A TSH is in the normal range. The patient underwent Lexiscan stress testing with perfusion imaging and this showed evidence of his old infarction but no evidence of reversible perfusion defect. He was felt to have a demand ischemia causing his chest discomfort and his elevated troponin. Angiography was not felt indicated at this time. The patient is started on Eliquis for prevention of stroke, and the risk of bleeding are reviewed with the patient in detail and he understands. He is started on amiodarone to try and hold him in a sinus rhythm. It is not felt appropriate to use rate control medicines as he had heart rates in the 30s without them during atrial fibrillation. The patient is felt stable for discharge to home at this time PENDING TEST RESULTS: None MEDICATION CHANGES: Addition of amiodarone 200 mg twice daily for 2 weeks due to change to daily after that Eliquis 5 mg twice daily Since he had CT scan on May 06 in the p.m. he will not resume metformin and till morning of May 09 FOLLOW-UP PLAN: With Dr. James in 1-2 weeks Greater than 35 minutes bedside and care coordination time today
--- NOTE | 2017-05-08 09:20 | ASDISCHSUM ---
Discharge Information Plan Status:Home with No Needs Medically Cleared to Leave:05/06/2017 Discharge Date:05/07/2017 06:38 PM CM D/C Disposition: ADT D/C Disposition:Home, Routine, Self-Care Projected Discharge Date:05/07/2017 12:00 AM Transportation at D/C: Discharge Delay Reason: Follow-Up Date:05/07/2017 12:00 AM Discharge Slot: Final Diagnosis: Placement Information Patient Contact Information Contact Name:BALA Relationship: Address: City: [facility] Phone: [facility]/Zip Code: Email: Financial Information Financial Class: Primary Plan Desc:MEDICARE OUTPATIENT Primary Plan Number:[id number] Secondary Plan Desc:[employer] Secondary Plan Number:[id number] Assessment Information [facility] Initial CM Assessment Living Arrangements What is your living Answers: Alone arrangement? Who do you live with? Type Of Residence What kind of residence do Answers: House you live in? Discharge Plan Comments Coordination Status Comments Notes: CM spoke w/ PEG Ferrari regarding d/c POC. Pt is a 82 y/o female admitted for atrial flutter. Pt is having a stress test today. Needs are unclear at this time. No therapies ordered. CM to follow. Plan: TBD Date Signed: 05/07/2017 01:21 PM Electronically Signed By:SHALINI Pearson Intervention Information Intervention Type:*Incorrect Registration Date of Service:05/07/2017 08:33 AM Patient Type:Inpatient Staff Member:PEG Camarena Bee Hours: Discipline: Severity: Comment:
== END 2017-05-07 18:38 | disposition home or self-care (01) ==
LOC: EDUNIT# → INTOOBSV 12:43 → F2W 16:40
PROVIDERS: ADMIT Internal Medicine; ATTEND Internal Medicine
PROC: 5A2204Z Restoration of Cardiac Rhythm, Single (ICD-10-PCS; principal; 2017-05-06)
PROC: B245ZZ4 Ultrasonography of Left Heart, Transesophageal (ICD-10-PCS; principal; 2017-05-06)
DX: I48.92 Unspecified atrial flutter (principal); R07.89 Other chest pain; I25.10 Atherosclerotic heart disease of native coronary artery without angina pectoris; I25.2 Old myocardial infarction; I50.9 Heart failure, unspecified; D64.9 Anemia, unspecified; E11.9 Type 2 diabetes mellitus without complications; D69.6 Thrombocytopenia, unspecified; M17.0 Bilateral primary osteoarthritis of knee; Z79.84 Long term (current) use of oral hypoglycemic drugs
CPT/HCPCS: 71020; 71275; 78452; 92960; 93005; 93017; 93312; 96372; 96374; 96375; 99285; A9500; G0378; J1650; J1885; J1940; J2704; J2785; J3475; Q9967; J0461

== ENCOUNTER → 2017-06-24 | Outpatient (CLI) | payer OTHER | LOC: BHLMT 14:45 | PROVIDERS: ATTEND Internal Medicine Cardiovascular Disease | DX: I49.5 Sick sinus syndrome (principal); I48.92 Unspecified atrial flutter; I25.10 Atherosclerotic heart disease of native coronary artery without angina pectoris; Z79.899 Other long term (current) drug therapy | CPT/HCPCS: 93225-PO; 93226-PO; 93306-PO ==

== ENCOUNTER → 2017-07-17 | Outpatient (CLI) | payer OTHER | LOC: BHFA 09:00 | PROVIDERS: ATTEND Internal Medicine Cardiovascular Disease | DX: I25.10 Atherosclerotic heart disease of native coronary artery without angina pectoris (principal); Z79.899 Other long term (current) drug therapy ==